=== PATIENT | male | born 1970 | race Native Hawaiian/Other Pacific Islander ===

== ENCOUNTER 2023-04-30 07:27 | Outpatient (REF) | payer BC, SELFPAY ==
--- NOTE | ~2023-04-30 | XR_ITS ---
EXAMINATION: XR KNEE, RIGHT CLINICAL INFORMATION: Pain in right knee COMPARISON: None available. TECHNIQUE: Three views of the right knee. FINDINGS: Mineralization is normal. There is no fracture or dislocation. There are severe joint space narrowing in the medial compartment with irregularity of the articular surface and marginal osteophyte. There is irregularity of the articular surface and osteophyte formation in the patellofemoral compartment. No soft tissue swelling or joint effusion is seen. XR/XR knee RT 3V IMPRESSION: Degenerative arthritis in the medial and patellofemoral compartments.
== END 2023-04-30 07:28 | disposition home or self-care (01) ==
LOC: HO.HOSX 07:27
PROVIDERS: Visit Provider Orthopaedic Surgery
DX: S83.241A Other tear of medial meniscus, current injury, right knee, initial encounter (principal)
CPT/HCPCS: 73562

== ENCOUNTER 2023-04-30 14:26 | Outpatient (AMB) | payer BC, SELFPAY ==
--- NOTE | 2023-04-30 14:44 | MHC.OFFVIS ---
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 He describes his pain as sharp in nature. Most of the pain is along the medial aspect of his knee. He did injure his knee several years ago while playing basketball. He twisted his knee and had acute onset of pain. Since that time his symptoms have gotten worse in spite of continued non operative treatments. He has had multiple injections. The most recent injection gave him minimal relief. He has also tried wearing a brace which gives him only mild relief. He states that his right knee will give out several times per day. He has tried Tylenol and anti-inflammatory medicines which gave him minimal relief. He has also done physical therapy for 12 weeks over the last 6 months which aggravated his pain. 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 Physical Exam Vital Signs: BMI result Body Mass Index 30.3 Const Other: Well-nourished well-developed very friendly male awake alert and oriented x3 in no acute distress Extrem Other: Bilateral lower extremity examination shows good capillary refill, no skin lesions noted, normal sensation light touch Right knee examination shows a minimal effusion, mild crepitus with range of motion, tenderness along his medial and lateral joint lines, positive Mira's test, no instability Results Reviewed Results Reviewed: X-rays of the patient's right knee show joint space narrowing, subchondral sclerosis, no acute bony abnormalities Assessment & Plan Assessment & Plan (1) Tear of medial meniscus of right knee: Code(s): S83.241A - Other tear of medial meniscus, current injury, right knee, initial encounter Plan: Mr. Spencer presents with progressively worsening right knee pain and mechanical symptoms due to degenerative joint disease, tearing of his medial meniscus and possible lateral meniscus tearing. I had a lengthy discussion with the patient regarding the treatment options. At this point he has failed continued non operative treatments. The risks and benefits of right knee arthroscopic surgery versus total knee replacement surgery were discussed at length with the patient. The patient wishes to hold off on total knee replacement surgery for as long as possible. I agree with this plan. Thus, the risks and benefits of right knee arthroscopic surgery were discussed at length with the patient. The patient wishes to proceed. He does understand that he may not get 100% relief of his symptoms depending on the severity of his degenerative changes. He will contact my office to pick a surgery date. He will follow-up as instructed. Feel free to call me at any time should questions regarding his orthopedic management arise. I spent 22 minutes in reviewing the patient's records and imaging studies, seeing the patient and documenting in the medical record. Orders: Orders XR knee RT 3V Today M25.561 - Pain in right knee Coding Level of Care Code Est Pt Level 2 (41617) Diagnoses Tear of medial meniscus of right knee S83.241A
[2023-04-30 14:46] VITALS: BMI 30.3
== END 2023-04-30 15:16 | disposition home or self-care (01) ==
PROVIDERS: PCP Internal Medicine; Visit Provider Orthopaedic Surgery
DX: S83.241A Other tear of medial meniscus, current injury, right knee, initial encounter (principal)
CPT/HCPCS: 99212

== ENCOUNTER 2023-05-26 14:47 | Outpatient (AMB) | payer BC, SELFPAY ==
--- NOTE | 2023-05-26 14:58 | A.OFFVIS_ITS ---
Intake Vital Signs 05/26/23 15:03 Height 5 ft Weight 217 lb BMI 42.4 Intake Visit Reasons: PreOp-Rt Knee Arthroscopy Intake Note: Paulino 52 yr old male presents today with complaints of progressively worsening right knee pain and giving way. He describes his pain as sharp in nature. Most of the pain is along the medial aspect of his knee. He did injure his knee several years ago while playing basketball. He twisted his knee and had acute onset of pain. Since that time his symptoms have gotten worse in spite of continued non operative treatments. He has had multiple injections. The most recent injection gave him minimal relief. He has also tried wearing a brace which gives him only mild relief. He states that his right knee will give out several times per day. He has tried Tylenol and anti-inflammatory medicines which gave him minimal relief. He has also done physical therapy for 12 weeks over the last 6 months which aggravated his pain. 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 Physical Exam Vital Signs: BMI result Body Mass Index 42.4 Const Other: Well-nourished well-developed very friendly male awake alert and oriented x3 in no acute distress Lungs clear to auscultation bilaterally with symmetric expansion Cardiovascular exam regular rate and rhythm Abdominal exam soft nontender nondistended Extrem Other: Bilateral lower extremity examination shows good capillary refill, no skin lesions noted, normal sensation light touch Right knee examination shows a minimal effusion, mild crepitus with range of motion, tenderness along his medial and lateral joint lines, positive Mira's test, no instability Results Reviewed Results Reviewed: X-rays of the patient's right knee taken today show mild to moderate joint space narrowing, no acute bony abnormalities Assessment & Plan Assessment & Plan (1) Tear of medial meniscus of right knee: Code(s): S83.241A - Other tear of medial meniscus, current injury, right knee, initial encounter Plan Mr. Spencer presents with progressively worsening right knee pain and mechanical symptoms due to tearing of his medial and lateral menisci and degenerative joint disease. I had a lengthy discussion with the patient regarding the treatment options. At this point he has failed continued non operative treatments. The risks and benefits of right knee arthroscopic surgery were discussed at length with the patient. The patient wishes to proceed with surgery. He does understand that he may not get 100% relief of his symptoms depending on the severity of his degenerative changes. The patient was given a prescription for Percocet at his preoperative appointment. I will see him back 2-3 weeks following his surgery for his 1st postoperative appointment. The patient will follow-up as instructed. Feel free to call me at any time should questions regarding his orthopedic management arise. I spent 22 minutes in reviewing the patient's records and imaging studies, seeing the patient and documenting in the medical record. Medications: New oxycodone-acetaminophen 5-325 mg (Percocet) Partial Fill upon patient request. 1 tab PO Q8H PRN 20 tabs 0RF pain Coding Level of Care Code Est Pt Level 2 (81528) Diagnoses Tear of medial meniscus of right knee S83.241A
[2023-05-26 15:03] VITALS: BMI 42.4
== END 2023-05-26 15:12 | disposition home or self-care (01) ==
PROVIDERS: PCP Internal Medicine; Visit Provider Orthopaedic Surgery
DX: S83.241A Other tear of medial meniscus, current injury, right knee, initial encounter (principal)
CPT/HCPCS: 99212

== ENCOUNTER → 2023-05-26 14:47 | Outpatient (BNVA) | payer BC, SELFPAY | PROVIDERS: PCP Internal Medicine; Visit Provider Orthopaedic Surgery ==

== ENCOUNTER 2023-06-05 11:49 | Day surgery (SDC) | payer BC, SELFPAY ==
[2023-06-05] VITALS (9 sets, daily range): BP systolic 112–146; BP diastolic 67–88; PULSE 55–64; RESP 12–16; TEMP 36.1–36.3; O2SAT 99–100; BMI 30.4
--- NOTE | 2023-06-05 13:24 | HO.ANESPROP2 ---
HPI - Anesthesia Eval Consult details Narrative: meniscus tear PMFSH Active Problems Active Problems: All Active Problems (Updated 04/30/23 @ 15:09 by Jules Couch MD) Tear of medial meniscus of right knee (Acute) Right knee pain (Acute) Family History Family history of problems with anesthesia: No Surgical History Surgical History (Updated 06/05/23 @ 12:37 by Angi Kyle) H/O knee surgery History of Problems with Anesthesia: No Social History Social History (Updated 04/30/23 @ 14:49 by ZACHREY Whittington) Patient Tobacco Use Status: Former Tobacco user Smoked in Last 30 Days: No Use of substances other than those prescribed or required for medical reasons: No Are you DNR?: No Advance Directives: No Advance Directives Information Provided: Yes Current occupational status: employed Current occupation: [employer] Allergies Allergy/AdvReac Type Severity Reaction Status Date / Time No Known Allergies Allergy Verified 06/05/23 12:36 Active Medications: Current Medications Lactated Ringer's (Lr) 1,000 mls @ 80 mls/hr IVCONT .[id number] KYREE Last Admin: 06/05/23 13:06 Dose: 80 mls/hr Exam Exam Date and Time: June 05, 2023 1324 Height,Weight and Vital Signs: Height 5 ft 11 in Weight 98.883 kg Last Vital Signs Temp 97.1 F 06/05/23 12:57 Pulse 61 06/05/23 12:57 Resp 16 06/05/23 12:57 BP 142/85 H 06/05/23 12:57 Pulse Ox 100 06/05/23 12:57 O2 Del Method Room Air 06/05/23 12:57 Airway Mallampati Class: II TM Dist: >3cm Neck ROM: Full Heart: rrr Lungs: cta Assessment and Plan Assessment Anesthesia Assessment: Anesthesia Plan Discussed and Chart Reviewed Final Anesthetic Review Family History of Problems with Anesthesia: No History of Problems with Anesthesia: No NPO: Yes ASA Class: II Final Preanesthetic Review: No Changes in Pt Med Stat, Meds/Allgs Chart Reviewed, Consent Obtained/Reviewed and Anes Risks/Benef Reviewed Patient Risk: Low Procedure Risk: Low Anesthetic Plan Anesthetic Plan: GA and Agree w/ Assess. and Plan Disposition: Standard PACU
--- NOTE | 2023-06-05 14:54 | PM.OP ---
Brief Operative Note Date of Service: 06/05/23 Pre-op diagnosis: Right knee medial meniscus tear, right knee lateral meniscus tear, right knee degenerative joint disease, right knee plica syndrome Post-op diagnosis: same Procedure: Right knee arthroscopic partial medial and lateral meniscectomies, right knee arthroscopic chondroplasty of the medial femoral condyle and lateral femoral condyle, right knee arthroscopic plica excision Implants: none Surgeon: Jules Couch MD Anesthesia: GLMA Was an Exchange Operator used for this Procedure?: No Estimated blood loss (mL): 10 Pathology: none sent Condition: stable Disposition: PACU
--- NOTE | 2023-06-05 14:55 | W.PM.OPN ---
Operative Note Operative Note Date of Service: 06/05/23 Narrative: After the patient was identified as Paulino Spencer and their right knee was initialed by myself they were brought to the operating room where general anesthesia was induced by the anesthesiologist in routine fashion. The patient was given 2 g of IV Ancef for infection prophylaxis. A formal time-out was completed. The patient's right lower extremity was prepped and draped in sterile fashion. Marcaine with epinephrine was injected into the planned incision sites as well as their left knee joint. A # 11 scalpel blade was used to make an anterolateral portal 1 cm proximal to the joint line and 1 cm lateral to the patellar tendon. Blunt trocar technique was used into the suprapatellar pouch with the knee in extension. Diagnostic arthroscopy showed multiple bands of thickened plica which would be excised at the end of the procedure. There were no loose bodies or abnormalities found in either the medial or lateral gutters. There were diffuse grade 2 degenerative changes of the undersurface of the patella as well as grades 2 and 3 degenerative changes of the trochlear groove. The patient's knee was flexed to 45 degrees and a valgus force was placed upon it. The medial compartment was entered. An anteromedial portal was made 1 cm proximal to the joint line and 1 cm medial to the patellar tendon. Probing of the medial meniscus showed a radial tear of the posterior horn. A partial medial meniscectomy was performed using the arthroscopic shaver. Following the partial meniscectomy the remainder of the meniscus tissue was stable. There were diffuse grades 2 and 3 degenerative changes of the medial femoral condyle as well as diffuse grades 3 and 4 degenerative changes of the medial tibial plateau. The articular surface of the medial femoral condyle was made smooth using the arthroscopic shaver. The articular surface of the medial tibial plateau was already smooth so no chondroplasty was indicated. The patient's knee was then placed into a neutral position. There was no injury to the anterior cruciate ligament. The patient's knee was then placed into the figure of 4 position and the lateral compartment was entered. There were minimal minimal degenerative changes of the lateral tibial plateau. There were diffuse grade 2 degenerative changes of the lateral femoral condyle. The lateral femoral condyle articular surface was made smooth using the arthroscopic shaver. There was also a radial tear of the anterior horn of the lateral meniscus. A partial lateral meniscectomy was performed using the arthroscopic shaver. Following the partial meniscectomy the remainder of the meniscus tissue was stable. The patient's knee was once again brought into extension and the suprapatellar pouch was entered. The arthroscopic shaver and the ArthroCare Wand were used to excise the thickened bands of plica. The articular surfaces of the patella and trochlear groove were already smooth so no chondroplasty was indicated. The knee joint was irrigated and then drained. All arthroscopic instruments were removed. The 2 portals were closed with 3-0 nylon interrupted suture. The knee joint was injected with Marcaine. Dry sterile dressing and Gerardo bandages were placed over the patient's knee. The patient was woken and expand the operating room. They were transferred to the recovery room in stable condition.
== END 2023-06-05 16:41 | disposition home or self-care (01) ==
LOC: HO.SSS 11:50
PROVIDERS: Visit Provider Orthopaedic Surgery
PROC: (CPT 29870; principal; 2023-06-05 13:30)
DX: S83.281A Other tear of lateral meniscus, current injury, right knee, initial encounter (principal); S83.241A Other tear of medial meniscus, current injury, right knee, initial encounter; M17.11 Unilateral primary osteoarthritis, right knee; M67.51 Plica syndrome, right knee; M25.861 Other specified joint disorders, right knee; X50.1XXA Overexertion from prolonged static or awkward postures, initial encounter; Y93.67 Activity, basketball; Y92.9 Unspecified place or not applicable; Y99.9 Unspecified external cause status
CPT/HCPCS: 29880; 29876; J0131; J0690; J0696; J1100; J1885; J2405; J2795; J3010

== ENCOUNTER → 2023-06-05 11:49 | Outpatient (BNV) | payer BC, SELFPAY | PROVIDERS: Visit Provider Orthopaedic Surgery | DX: S83.231A Complex tear of medial meniscus, current injury, right knee, initial encounter (principal); S83.271A Complex tear of lateral meniscus, current injury, right knee, initial encounter; M17.11 Unilateral primary osteoarthritis, right knee; M67.51 Plica syndrome, right knee | CPT/HCPCS: 29880 ==

== ENCOUNTER 2023-06-18 13:22 | Outpatient (AMB) | payer BC, SELFPAY ==
--- NOTE | 2023-06-18 13:57 | A.OFFVIS_ITS ---
Intake Intake Visit Reasons: Rt Knee 06/05/23 Intake Note: Paulino 52 yr old male presents today for his P/O visit for his right knee from 06/05/[address] Couch. The patient reports mild discomfort in his right knee. He continues with his home exercise program. He denies any fevers or chills. He denies any locking or giving way. 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 Spencer is doing well after undergoing right knee arthroscopic surgery on 06/05/2023. His sutures were removed and Steri-Strips placed over his incisions. He will gradually progress to activities as tolerated. He will follow up with me on an as-needed basis should his symptoms not plateau at an unacceptable level over the next few months. Feel free to call me at any time should questions regarding his orthopedic management arise. Coding Level of Care Code Global (39197) Diagnoses Right knee pain M25.561
== END 2023-06-18 14:27 | disposition home or self-care (01) ==
PROVIDERS: PCP Internal Medicine; Visit Provider Orthopaedic Surgery
DX: M25.561 Pain in right knee (principal)
CPT/HCPCS: 99024

== ENCOUNTER → 2023-06-18 13:22 | Outpatient (BNVA) | payer BC, SELFPAY | PROVIDERS: PCP Internal Medicine; Visit Provider Orthopaedic Surgery ==

== ENCOUNTER 2025-08-09 13:30 | Outpatient (AMB) | payer BC, SELFPAY ==
--- NOTE | 2025-08-09 13:41 | A.OFFPC_ITS ---
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: No Accompanied by: Self / Same As Patient Allergies No Known Allergies Allergy (Verified 08/09/25 13:41) Tobacco use date assessed: 08/09/25 Dental Screening Dental Screen Date: 08/09/25 Did you have a dental visit in the last 12 months?: Yes Did you have a dental problem in the last 6 months where you did not have access to dental care?: No Was dental information given to patient?: Patient has dentist HPI HPI Comments History of Present Illness Details 54-year-old male with history of onychom ycosis, osteoarthritis, obesity presenting to the office today to establish care and for annual physical exam. He has not been seen by a PCP in many years. He currently lives at home 1 week and with his girlfriend for the other week. Feels safe at home. He is quite active hiking very often. Follows a healthy diet. 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 He only reports occasional alcohol use. No history of cigarette smoking. No illicit drug use or marijuana use. Obesity- BMI 31.6 OA B/L knee- Dr. Faustin. s/p arthroscopy x2 R and s/p arthroscopy L Onychomycosis- due to wearing golf glove. Extended to skin of hand. Using terbinafine. [facility]. Patient had a mild leukopenia 3.8 and dermatology was concerned about the medication. Previously had been 4.6. Medication has since been placed on hold requesting PCP recommendations. Leukopenia is a rare cause of leukopenia. Reviewing differential, no concerns Concerns: None Healthy Maintenance: Overdue for colon cancer screening Due for PSA Overdue for eye exams Dental exams 3 times yearly Skin exams Reviewed past medical, surgical, family, social history ROS: General: No fevers, malaise, unintentional weight loss HEENT: No blurred vision, diplopia. No sore throat, nasal congestion, rhinorrhea, sinus pain, ear pain. No hearing loss Neck - no adenopathy Cardiovascular: No chest pain, palpitations, or leg edema Respiratory: No shortness of breath, wheezing, cough Breast: No pain, palpable lumps, nipple inversion GI: No dysphagia, odynophagia, globus sensation. No abdominal pain, nausea, vomiting, diarrhea, constipation, melena, hematochezia : No dysuria, hematuria, increased urinary frequency, decreased urinary output. SPECIAL DELIVERY MESSENGER: No abn vaginal bleeding or discharge MSK: No myalgia, back pain, arthralgias Neuro: No headaches, weakness, paresthesias Psych: no depression/anxiery. No AH/VH. No SI/HI Skin: No rashes or lesions EXAM: Constitutional - Awake and Alert, No apparent distress Eyes - PERRLA, EOMI. Anicteric Ears - external ears normal, canals clear, TMs intact and pearly meek with good cone of light Nose- septum midline, nares clear, no sinus tenderness Mouth/throat- mucosa moist, tongue and uvula midline, no erythema/edema or tonsillar adenopathy. Neck-trachea midline, thyroid symmetric without palpable nodules, no adenopathy Cardiovascular - S1S2, RRR, No edema Respiratory - Normal lung expansion, Normal respiratory effort, No respiratory distress, CTA bilaterally Gastrointestinal - NT / ND; +BS; No rebound or guarding - No CVA tenderness Extremities - no calf tenderness bilaterally, no swelling Musculoskeletal - Normal inspection, normal ROM Skin - Warm/Dry, no concerning lesions. 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 1. Little interest or pleasure in doing things: not at all 2. Feeling down, depressed, or hopeless: not at all 3. Trouble falling or staying asleep, or sleeping too much: not at all 4. Feeling tired or having little energy: not at all 5. Poor appetite or overeating: not at all 6. Feeling bad about yourself - or that you are a failure or have let yourself or your family down: not at all 7. Trouble concentrating on things, such as reading the newspaper or watching television: not at all 8. Moving or speaking so slowly that other people could have noticed. Or the opposite - being so fidgety or restless that you have been moving around a lot more than usual: not at all 9. Thoughts that you would be better off or of hurting yourself in some way: not at all Total score: 0 Depression Screening Interpretation: Negative Depression Screening Done: Yes 55385 - PHQ-9 Billing: Yes Source: Developed by Drs. Yusuf Chow, Giselle Todd, Robert Sanchez and colleagues, with an educational michele from [email or web address]. Thrive Questionnaire I am a: Patient What is your living situation today?: I have a steady place to live Within the past 12 months, did the food you bought not last and you didn't have the money to get more?: Never true Within the past 12 months, did you worry whether your food would run out before you got money to buy more?: Never true Do you have trouble paying for medicines?: No Do you have trouble getting transportation to medical appointments?: No Do you have trouble paying your heating and electricity bill?: No Do you have trouble taking care of your child, family member or friend?: No Do you have trouble with day-to-day activities such as bathing, preparing meals, shopping, managing finances, etc.?: No Are you currently unemployed and looking for a job?: No Are you interested in more education?: No Please select the resources that you would like help with: None Currently or been in a relationship where the following occur: No concerns reported THRIVE Score: 0 LASHANDA-7 AMB Questionnaire LASHANDA-7 Feeling nervous, anxious, or on edge: 0 = Not at all Not being able to stop or control worryin = Not at all Worrying too much about different things: 0 = Not at all Trouble relaxin = Not at all Being so restless that it is hard to sit still: 0 = Not at all Becoming easily annoyed or irritable: 0 = Not at all Feeling afraid as if something awful might happen: 0 = Not at all Total LASHANDA-7 score (0-4 normal; 5-9 mild; 10-14 moderate; 15-21 severe): 0 Source: Developed by Drs. Yusuf Chow, Giselle Todd, Robert Sanchez and colleagues, with an educational michele from [email or web address]. LASHANDA-7 Assessment Billing LASHANDA-7 Assessment Tool: LASHANDA-7 Assessment 99990 Physical exam (Primary Care) Vital Signs: Last Vital Signs Temp 97.5 F 08/09/25 13:49 Pulse 66 08/09/25 13:49 Resp 14 08/09/25 13:49 BP 122/80 08/09/25 13:49 Pulse Ox 99 08/09/25 13:49 Oxygen Delivery Method Room Air 08/09/25 13:49 BMI result Body Mass Index 31.6 Tobacco/Smoking Status: Tobacco use Status Tobacco use date assessed 08/09/25 08/09/25 13:49 Patient Tobacco Use Status Former Tobacco user 08/09/25 13:43 e-Cigarette/Vaping Use Never Used 08/09/25 13:49 Depression Screening Interpretation: Negative Currently or been in a relationship where the following occur: No concerns reported Coding Level of Care Code New Pt Prev Care 40-64y(71758) Diagnoses Routine medical exam Z00.00 Encounter to establish care Z76.89 Onychomycosis B35.1 Obesity E66.9 Additional Codes PHQ-9 - 87514 - PHQ-9 Billing: Yes ([id number]) LASHANDA-7 Assessment Billing - LASHANDA-7 Assessment Tool: LASHANDA-7 Assessment 49947 ([id number]) Assessment & Plan Assessment & Plan (1) Routine medical exam: Code(s): Z00.00 - Encounter for general adult medical examination without abnormal findings Category: Medical Plan: 54-year-old male presenting for annual physical exam. Plan as below (2) Encounter to establish care: Code(s): Z76.89 - Persons encountering health services in other specified circumstances Category: Medical Plan: Here to establish care (3) Onychomycosis: Code(s): B35.1 - Tinea unguium Category: Medical Plan: Reviewed last labs. Okay to resume terbinafine. Leukopenia is only mild and is very rarely caused by terbinafine. Differential is also reassuring. Labs ordered to be checked at [facility] in 4 weeks. Discussed that terbinafine can be resumed with ongoing monitoring by Dermatology (4) Obesity: Code(s): E66.9 - Obesity, unspecified Category: Medical Plan: Continue with weight loss efforts. Recommend diet lower in calories with increased fruits, vegetables, protein limiting refined sugars, simple carbohydrates, highly processed foods. Recommend moderate intensity exercise for at least 150 minutes weekly Plan Follow-up in 1 year for annual physical exam Routine screening labs as ordered below PSA and Cologuard ordered. Discussed risks of false positives and negatives with Cologuard and understands that any positive results should be followed up with a colonoscopy Continue following for annual skin exams and use sun protection Annual eye exams Continue with regular dental exams Wear seat belt in car Recommend regular exercise and healthy diet Orders: Orders Basic Metabolic Panel 4 Weeks B35.1 - Tinea unguium, Z00.00 - Encounter for general adult medical examination without abnormal findings, Z76.89 - Persons encountering health services in other specified circumstances Complete Blood Count Auto Diff 4 Weeks B35.1 - Tinea unguium, Z00.00 - Encounter for general adult medical examination without abnormal findings, Z76.89 - Persons encountering health services in other specified circumstances Hemoglobin A1c 4 Weeks B35.1 - Tinea unguium, Z00.00 - Encounter for general adult medical examination without abnormal findings, Z76.89 - Persons encountering health services in other specified circumstances Lipid Panel 4 Weeks B35.1 - Tinea unguium, Z00.00 - Encounter for general adult medical examination without abnormal findings, Z76.89 - Persons encountering health services in other specified circumstances Liver Panel 4 Weeks B35.1 - Tinea unguium, Z00.00 - Encounter for general adult medical examination without abnormal findings, Z76.89 - Persons encountering health services in other specified circumstances Vitamin D 25-OH Total 4 Weeks B35.1 - Tinea unguium, Z00.00 - Encounter for general adult medical examination without abnormal findings, Z76.89 - Persons encountering health services in other specified circumstances Prostate Specific Antigen 4 Weeks B35.1 - Tinea unguium, Z00.00 - Encounter for general adult medical examination without abnormal findings, Z76.89 - Persons encountering health services in other specified circumstances TSH reflex Free T4 4 Weeks B35.1 - Tinea unguium, Z00.00 - Encounter for general adult medical examination without abnormal findings, Z76.89 - Persons encountering health services in other specified circumstances Referrals Cologuard Test Z12.11 - Encounter for screening for malignant neoplasm of colon, Z12.12 - Encounter for screening for malignant neoplasm of rectum
[2025-08-09 13:49] VITALS: BP 122/80; PULSE 66; RESP 14; TEMP 36.4; O2SAT 99; BMI 31.6
--- OUTSIDE RECORDS SUMMARY | 2025-08-09 20:56 | XMS_ITS | Data Portability ---
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 Spencer pre sents with right knee pain due to degenerative joint disease. I had a lengthy discussion with the patient regarding the treatment options. He wishes to hold off on surgery for as long as possible. I agree with this plan. Thus, after verbal consent was given I prepped his right knee with alcohol. I then injected 5 cc of 1% plain lidocaine. I then aspirated 1 cc of clear fluid from his right knee. I then injected 40 mg of Kenalog. The patient tolerated the injection well. He will continue with his home exercise program. He will follow-up with me on an as-needed basis should his symptoms not plateau at an acceptable level over the next few months. [email or web address] Not available 11/24/2022 11:57:18 01/19/2023 01/19/2023 Pleasant 52-year -old male severe grade 4 osteoarthritis of the right knee joint. It is too soon for him to receive cortisone injection. We did discuss total joint replacement surgery for which I would send him to Dr. Palma. He is attempting to stave this off as long as possible. We did discuss efficacy or lack thereof of viscosupplementation injections. He wishes to be seen back in approximately 1 month for possible reinjection with cortisone within his right knee. He can take [id number] pain medications for symptomatic relief. We did discuss knee sleeve and bracing for which she states he is already done and this makes it uncomfortable. As well as therapy exercises. He agrees with the above-noted plan. Indirect care and treatment in conjunction with Dr. Palma Additional treatment plan discussed with the patient in detail included the following; - Provider focused nonsteroidal anti-inflammatory regimen (discussed were the pros, cons, benefits and risks as well as any black box warnings) in patients over 60 years old they should be very cautious in taking these medications due to potential decreased kidney function and or elevated blood pressure. - Analgesic pain medication for pain suppression (discussed were the pros, cons, benefits and risks as well as any black box warnings) - The use of topical pain relieving medication were discussed - The use of ice to decrease inflammation and pain - The use of assistive ambulatory devices for ambulation and fall prevention - Formal specific guided physical therapy program I reviewed my findings at length with the patient today. We discussed the nature and etiology of this problem along with current treatment options. We discussed the expected course and outcomes and what to expect. We also discussed risks and benefits. All of their questions were answered today, and there was exhibited understanding and comprehension of all that was discussed. Time Spent: 10 minutes were spent reviewing previous imaging and charting. 10 minutes were spent obtaining patient history. 5 minutes were spent on physical exam. 5minutes were spent explaining diagnosis and assessment. Today's documentation was made using voice recognition software. This note may contain grammatical errors secondary to the software. [email or web address] Not available 01/19/2023 10:20:28 Plan of Treatment Reminders Order Date Submit Date Provider Last Modified By Organization Details Last Modified Time Details Appointments None recorded. Lab None recorded. Referral None recorded. Procedures None recorded. Surgeries None recorded. Imaging None recorded. Medication Orders lidocaine (PF) 10 mg/mL (1 %) injection solution 2022 023 [email or web address] Not available 3 15:20:18 Kenalog 40 mg/mL suspension for injection 2022 023 [email or web address] Not available 3 15:20:18 Patient TargetsNo targets recorded. Patient InstructionsNo instructions recorded. Reason for Referral None Reported. Problems Name Problem SNOMED Code Status Onset Date Resolution Date Notes Provider Name and Address Organization Details Recorded Time Pain of right knee joint 7640717770205 00 Active 2022 Jules Couch MD [address], [place], [address], [place] [facility] 11:54:17 Arthritis of right knee joint 1569409016366 102 Active 2022 Jules Couch MD [address], [place], [address], [place] [facility] 11:54:29 Osteoarthri tis of right knee joint 2340936535551 00 Active 2022 SONYA MAK PA-C [address], [place], [address], [place] [facility] 10:20:34 Problem Notes None recorded. Procedures Surgical History Date Name Laterality Status Provider Name and Address Organization Details Recorded Time 11/21/2022 Knee Joint/Burs a Asp & Inj completed Jules Couch MD [address], [place], [address], [place] [facility] 11/24/2022 11:54:11 Imaging Results None recorded. Procedure Notes None recorded. Medical Equipment None Reported. Allergies No known drug allergies Medications Name Sig Start Date Stop Date Status Note LastModified by Organization Details LastModified Time Kenalog 40 mg/mL suspension for injection Take 1 mL by injection route. 2022 active Not Available Not Available Not Avai lable lidocaine (PF) 10 mg/mL (1 %) injection solution Take 0.5 mL by injection route. 2022 active Not Available Not Available Not Avai lable Vitals Date Recorded Body height Body mass index (BMI) Body weight Provider Name and Address Organization Details Last Updated DateTime 11/21/2022 180.34 cm 30.4 kg/m2 [address]4880.[address] [place] [facility] 11/21/2022 14:09:45 Date Recorded Body height Provider Name an d Address Organization Details Last Updated DateTime 01/19/2023 180[address] [place] [facility] 01/19/2023 09:55:45 Social History None recorded. Functional Status None recorded. Mental Status None recorded. Family History Relationship Description Onset Age of this Age Resolved Age Notes LastModified by Organization Details LastModified Time Father No current problems or disability [email or web address] Not available 11/21 14:09:52 Mother No current problems or disability [email or web address] Not available 11/21 14:09:52 Medical History Condition Response Coronary Artery Disease N Gout N Hyperthyroidism N MRSA N Blood Transfusion N Emphysema N Depression N COPD N Hypothyroidism N Pacemaker N Vascular Disease N Gastrointestinal Disease N Anxiety Disorder N Autoimmune disease N Arthritis N Cancer N Stroke N High Cholesterol N Neurologic Disorder N Liver Disease N Organ Transplant N Rheumatoid Arthritis N Arrhythmia N Fibromyalgia N Kidney Disease N Allergies/Hayfever N Adverse Reaction to Anesthesia N Thyroid Problems N Anemia N Brain Injury N Heart Attack (ID) N Osteopenia N Diabetes N Bleeding Disorder N Seizures/Epilepsy N AIDS/HIV N Congestive Heart Failure (CHF) N Asthma N Amputation N Reflux/GERD N Sleep Apnea N Hepatitis N Aneurysm N Heart Disease N Pulmonary Embolism N Hypertension N Osteoporosis N Past Encounters Encounter ID Performer Location Encounter Start Date Encounter Closed Date Diagnosis/Indication Diagnosis SNOMED-CT Code Diagnosis ICD10 Code Diagnosis IMO Codes Diagnosis Note 1979 MD NICOLETTE Avery nap- [facility] Parents [address] [facility] [address] [place] [address] 11/21/2022 13:59:07 11/21/2022 14:42:49 Pain of right knee joint [id number] 78594 M25.561 Arthritis of right knee joint 9602463123 898765 M13.861 [id number] CARLOS SÁNCHEZ nap- Naturally Attached Parents [address] [facility] [address] [place] [address] 01/19/2023 09:49:24 01/19/2023 10:19:07 Osteoarthritis of right knee joint 8081061508 90660 M17.11 Health Concerns Section Related Observation LastModified by Organization Detai ls LastModified Time None Recorded Concern Status LastModified by Organization Details LastModified Time None Recorded Advance Directives Directive None Recorded Payers Insurance Date Sequence Insurance Name Policy Number Policy Francois Covered Member ID Francois Member ID Guarantor Name 01/23/2023 1 [employer] (PPO) [id number] Paulino Spencer [id number] Paulino Spencer Notes Date Note Type Note Provider Name and Address Organization Details Recorded Time 11/21/2022 text/html The patient presents with complaints of progressively worsening right knee pain and swelling. He describes his pain as sharp in nature. His pain has gotten worse over the last 6 months in spite of continued nonoperative treatments. He has done physical therapy exercises which aggravated his pain. He has also tried Tylenol and anti-inflammatory medicine which gave him minimal relief. He denies any locking or giving way. He has tried wearing a knee brace which gives him only mild relief. Jules Couch MD [address] [facility] [address], [place], [address], [place] [facility] 11/24/2022 11:57:58 01/19/2023 text/html Assessment & Plan Dr. Couch note from 11/21/2022Mr. Spencer presents with right knee pain due to degenerative joint disease. I had a lengthy discussion with the patient regarding the treatment options. He wishes to hold off on surgery for as long as possible. I agree with this plan.Thus, after verbal consent was given I prepped his right knee with alcohol. I then injected 5 cc of 1% plain lidocaine. I then aspirated 1 cc of clear fluid from his right knee. I then injected 40 mg of Kenalog. The patient tolerated the injection well. He will continue with his home exercise program. He will follow-up with me on an as-needed basis should his symptoms not plateau at an acceptable level over the next few months.pain of right knee joint HPI:States playing basketball and engaging in sports is difficult. Here for discussion regarding treatment. Denies any new injuries.Patient states ongoing pain and locking clicking catching. Previous x-rays were reviewed in chart which took approximately 10 to 15 minutes. Previous imaging studies reveal severe grade 4 osteoarthritis of the right knee joint. SONYA MAK PA-C [address] [facility] [address], [place], [address], [place] [facility] 01/19/2023 10:20:52
--- OUTSIDE RECORDS SUMMARY | 2025-08-09 20:56 | XMS_ITS | Clinical Summary ---
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 Name Role Phone Maura Benitez MD Primary Care Provider [phone] Allergies No known active allergies Medications No known medications Social History Tobacco Use Types Packs/Day Years Used Date Smoking Tobacco: Never Assessed Tobacco Cessation:Counseling Given: Not Answered Sex and Gender Information Value Date Recorded Sex Assigned at Not on file Gender Identity Not on file Sexual Orientation Not on file Job Start Date Occupation Industry Not on file Not on file Not on file Last Filed Vital Signs Vital Sign Reading Time Taken Comments Blood Pressure - - Pulse - - Temperature - - Respiratory Rate - - Oxygen Saturation - - Inhaled Oxygen Concentration - - Weight 98.9 kg (218 lb) 09/30/2022 9:35 AM EST Height 180.3 cm (5' 11 ) 09/30/2022 9:35 AM EST Body Mass Index 30.4 09/30/2022 9:35 AM EST Plan of Treatment Health Maintenance Due Date Last Done Comments Hepatitis B Vaccines (1 of 3 - 3-dose series) 1968 Hepatitis C Screening 1968 COVID-19 Vaccine (#1) 03/01/1969 Depression Screening 1980 BMI Counseling 1986 Preventative Health Evaluation 1986 DTap / Tdap / Td (1 - Tdap) 1987 Colon Cancer Screening (Colonoscopy) 2013 Shingrix-Zoster Vaccine (1 of 2) 2018 Influenza Vaccine (#1) 2025 Pneumococcal Vaccine Aged Out No long er eligible based on patient's age to complete this topic RSV Ped < 20 months Aged Out No longe r eligible based on patient's age to complete this topic Care Teams Lens Grinding Machine Operator Relationship Specialty Start Date End Date Maura Benitez MD [address] [place] [address] PCP - General Dish Carrier 09/30/22
--- OUTSIDE RECORDS SUMMARY | 2025-08-09 20:56 | XMS_ITS | Clinical Summary ---
Author Organization [address] Address [address] [place] [phone] Phone Care Team Providers Care Business Objects Developer Name Role Phone Maura Benitez MD Primary Care Provider Encounters Date Type Department Care Team Description 07/26/2025 8:10 AM EST Lab Draw Station - [address] [place] [id number] Drug therapy (Primary Dx) from Last 3 Months Surgical History Surgery Date Site/Laterality Comments KNEE SURGERY PROCEDURE:KNEE SURGERY Social History Tobacco Use Types Packs/Day Years Used Date Smoking Tobacco: Never Assessed Sex and Gender Information Value Date Recorded Sex Assigned at Not on file Legal Sex Male 8:41 PM EST Gender Identity Not on file Sexual Orientation Not on file Last Filed Vital Signs [...] Health Maintenance Due Date Last Done Comments Colorectal Cancer Screening: Colonoscopy 1968 DTaP,Tdap,and Td Vaccines (1 - Tdap) 1987 Hepatitis B Vaccines (1 of 3 - 19+ 3-dose series) 1987 Pneumococcal Vaccine: 50+ Years (1 of 1 - PCV) 2018 Zoster Vaccines (1 of 2) 2018 Cholesterol Screening (Lipid Panel) 08/13/2022 HIV Screening 08/13/2022 Hepatitis C Screening 08/13/2022 Social Influencers of Health Screening 08/13/2022 Depression Screening 08/31/2024 COVID-19 Vaccine (4 - 2024-2 6 season) 2025 08/20/2021, 09/28/2020, 09/03/2020 Influenza Vaccine (#1) 2025 RSV Immunization Adult Patients (1 - 1-dose 75+ series) 2043 HIB Vaccines Aged Out No longer eligi ble based on patient's age to complete this topic HPV Vaccines Aged Out No longer eligi ble based on patient's age to complete this topic Hepatitis A Vaccines Aged Out No long er eligible based on patient's age to complete this topic IPV Vaccines Aged Out No longer eligi ble based on patient's age to complete this topic MMR Vaccines Aged Out No longer eligi ble based on patient's age to complete this topic Meningococcal ACWY Vaccine Aged Out N o longer eligible based on patient's age to complete this topic Meningococcal B Vaccine Aged Out No l onger eligible based on patient's age to complete this topic RSV Immunization Patients Under 20 months Aged Out No longer eligible b ased on patient's age to complete this topic Varicella Vaccines Aged Out No longer eligible based on patient's age to complete this topic Procedures Procedure Name Priority Date/Time Associated Diagnosis Comments CBC WITH AUTO DIFFERENTIAL Routine 07/26/2025 8:15 AM EST Drug therapy CBC AND DIFFERENTIAL Routine 07/26/2025 8:15 AM EST Drug therapy COMPREHENSIVE METABOLIC PANEL Routine 07/26/2025 8:15 AM EST Drug therapy CBC WITH AUTO DIFFERENTIAL Routine 06/16/2025 10:07 AM EDT Polypharmacy COMPREHENSIVE METABOLIC PANEL Routine 06/16/2025 10:07 AM EDT Polypharmacy CBC AND DIFFERENTIAL Routine 06/16/2025 10:07 AM EDT Polypharmacy from Last 3 Months Results * (ABNORMAL) CBC auto differential (07/26/2025 8:15 AM EST) Only the most recent of2 resultswithin the time period is included. WBC 3.6(L) 4.8 - 10.8 K/mcL LAB HEMETOLOGY METHOD 07/26/2025 9:21 AM [facility] RBC 4.90 4.50 - 5.50 M/mcL LAB HEMETOLOGY METHOD 07/26/2025 9:21 AM [facility] Hemoglobin 14.9 13.5 - 17.5 g/dL LAB HEMETOLOGY METHOD 07/26/2025 9:21 AM [facility] Hematocrit 43.5 42.0 - 54.0 % LAB HEMETOLOGY METHOD 07/26/2025 9:21 AM [facility] MCV 88.2 79.0 - 98.0 FL LAB HEMETOLOGY METHOD 07/26/2025 9:21 AM [facility] MCH 30.2 27.0 - 32.0 pcg LAB HEMETOLOGY METHOD 07/26/2025 9:21 AM [facility] MCHC 34.3 32.0 - 37.0 g/dL LAB HEMETOLOGY METHOD 07/26/2025 9:21 AM [facility] RDW 12.2 11.0 - 15.0 % LAB HEMETOLOGY METHOD 07/26/2025 9:21 AM [facility] Platelets 221 130 - 400 K/mcL LAB HEMETOLOGY METHOD 07/26/2025 9:21 AM [facility] MPV 10.0 7.0 - 11.0 FL LAB HEMETOLOGY METHOD 07/26/2025 9:21 AM [facility] NRBC 0.0 <1.0 % LAB HEMETOLOGY METHOD 07/26/2025 9:21 AM [facility] NRBC Absolute 0.00 <0.10 K/mcL LAB HEMETOLOGY METHOD 07/26/2025 9:21 AM [facility] Neutrophils Relative 44.9 % LAB HEMETOLOGY METHOD 07/26/2025 9:21 AM [facility] Lymphocytes Relative 35.4 % LAB HEMETOLOGY METHOD 07/26/2025 9:21 AM [facility] Monocytes Relative 9.3 % LAB HEMETOLOGY METHOD 07/26/2025 9:21 AM [facility] Eosinophils Relative 9.0 % LAB HEMETOLOGY METHOD 07/26/2025 9:21 AM [facility] Basophils Relative 1.1 % LAB HEMETOLOGY METHOD 07/26/2025 9:21 AM [facility] Immature Granulocytes Relative 0.3 % LAB HEMETOLOGY METHOD 07/26/2025 9:21 AM [facility] Neutrophils Absolute 1.60 1.50 - 7.00 K/mcL LAB HEMETOLOGY METHOD 07/26/2025 9:21 AM [facility] Lymphocytes Absolute 1.26 1.00 - 5.00 K/mcL LAB HEMETOLOGY METHOD 07/26/2025 9:21 AM [facility] Monocytes Absolute 0.33 0.20 - 1.00 K/mcL LAB HEMETOLOGY METHOD 07/26/2025 9:21 AM [facility] Eosinophils Absolute 0.32 0.00 - 0.50 K/mcL LAB HEMETOLOGY METHOD 07/26/2025 9:21 AM [facility] Basophils Absolute 0.04 0.00 - 0.20 K/mcL LAB HEMETOLOGY METHOD 07/26/2025 9:21 AM [facility] Immature Granulocytes Absolute 0.01 0.00 - 0.03 K/mcL LAB HEMETOLOGY METHOD 07/26/2025 9:21 AM [facility] Blood Venous blood specimen / Unknown Venipuncture / Unknown 07/26/2025 8:15 AM EST 07/26/2025 9:12 AM EST us Chanel HAN LAB BLOOD ORDERABLES Final Resul t [facility] [address] [place] [address], * Comprehensive metabolic panel (07/26/2025 8:15 AM EST) Only the most recent of2 resultswithin the time period is included. Sodium 141 133 - 145 mmol/L 07/26/2025 9:45 AM [facility] Potassium 4.7 3.5 - 5.5 mmol/L 07/26/2025 9:45 AM [facility] Chloride 104 96 - 110 mmol/L 07/26/2025 9:45 AM [facility] CO2 30 21 - 32 mmol/L 07/26/2025 9:45 AM [facility] Anion Gap 7 3 - 11 07/26/2025 9:45 AM [facility] Glucose 96 70 - 100 mg/dL 07/26/2025 9:45 AM [facility] BUN 13 5 - 25 mg/dL 07/26/2025 9:45 AM [facility] Creatinine 1.03 0.70 - 1.30 mg/dL 07/26/2025 9:45 AM [facility] eGFR 85 >=60 mL/min/1. 73m2 07/26/2025 9:45 AM [facility] Comment:Calculation based on the Chronic Kidney Disease Epidemiology Collaboration (CKD-EPI) equation refit without adjustment for race. BUN/Creatinine Ratio 12.6 07/26/2025 9:45 AM [facility] Calcium 9.2 8.5 - 10.5 mg/dL 07/26/2025 9:45 AM [facility] AST (SGOT) 30 10 - 42 unit/L 07/26/2025 9:45 AM [facility] ALT (SGPT) 29 10 - 60 unit/L 07/26/2025 9:45 AM [facility] Alkaline Phosphatase 64 42 - 121 unit/L 07/26/2025 9:45 AM [facility] Total Protein 6.5 6.0 - 8.0 g/dL 07/26/2025 9:45 AM [facility] Albumin 4.1 3.2 - 5.0 g/dL 07/26/2025 9:45 AM [facility] Total Bilirubin 0.7 0.0 - 1.4 mg/dL 07/26/2025 9:45 AM [facility] Blood Venous blood specimen / Unknown Venipuncture / Unknown 07/26/2025 8:15 AM EST 07/26/2025 9:11 AM EST us Chanel HAN LAB BLOOD ORDERABLES Final Resul t [facility] [address] [place] [address], from Last 3 Months Insurance [employer] Care Teams Business Objects Developer Relationship Specialty Start Date End Date Maura Benitez MD [address] [place] [phone] PCP - General Internal Medicine 06/16/25
== END 2025-08-09 14:32 | disposition home or self-care (01) ==
LOC: HO.HMCHD 13:31
PROVIDERS: PCP Internal Medicine; Visit Provider Physician Assistant
DX: Z00.00 Encounter for general adult medical examination without abnormal findings (principal); Z76.89 Persons encountering health services in other specified circumstances; B35.1 Tinea unguium; E66.9 Obesity, unspecified

== ENCOUNTER → 2025-08-09 13:30 | Outpatient (BNVA) | payer BC, SELFPAY | PROVIDERS: PCP Internal Medicine; Visit Provider Physician Assistant | DX: Z00.00 Encounter for general adult medical examination without abnormal findings (principal); Z76.89 Persons encountering health services in other specified circumstances; M17.0 Bilateral primary osteoarthritis of knee; E66.9 Obesity, unspecified; Z68.31 Body mass index [BMI] 31.0-31.9, adult; B35.1 Tinea unguium; Z13.31 Encounter for screening for depression | CPT/HCPCS: 96127 ==